=== PATIENT | female | born 1960 | race Caucasian/White ===

== ENCOUNTER → 2017-03-21 | Outpatient (CLI) | payer BC ==
--- NOTE | 2017-03-21 14:55 | KCIC ---
DATE: 03/21/2017 EXAM: MAMMO MALIK SCREENING BILATERAL HISTORY: Routine screening COMPARISON: 04/05/2016, 04/06/2015 This study was interpreted with the benefit of Computerized Aided Detection (CAD). The breast parenchyma shows scattered fibroglandular densities. Breast parenchyma level B. FINDINGS: 2-D and 3-D tomosynthesis imaging was performed in CC and MLO projections. There is an oval-shaped 8 mm nodule again noted in the upper outer quadrant of the right breast posteriorly. No new or enlarging breast densities are seen. Minimal benign type calcification is present. No suspicious microcalcifications have developed. IMPRESSION: 1. Stable right lateral breast nodule. 2. No mammographic evidence of malignancy in either breast. BI-RADS CATEGORY: 2 BENIGN FINDING(S) RECOMMENDED FOLLOW-UP: 12M 12 MONTH FOLLOW-UP PQRS compliance statement: Patient information was entered into a reminder system with a target due date for the next mammogram. Mammography is a sensitive method for finding small breast cancers, but it does not detect them all and is not a substitute for careful clinical examination. A negative mammogram does not negate a clinically suspicious finding and should not result in delay in biopsying a clinically suspicious abnormality. "Our facility is accredited by the [employer]ammography [employer]."
== END | disposition home or self-care (01) ==
LOC: KCIC MAMMO 09:18
PROVIDERS: ATTEND Obstetrics & Gynecology
DX: Z12.31 Encounter for screening mammogram for malignant neoplasm of breast (principal); N63.10 Unspecified lump in the right breast, unspecified quadrant; N63.20 Unspecified lump in the left breast, unspecified quadrant
CPT/HCPCS: 77063; G0202; 77067

== ENCOUNTER → 2018-09-25 | Outpatient (CLI) | payer BC ==
--- NOTE | 2018-09-25 11:56 | KCIC ---
Bilateral digital screening mammograms with 3-D tomosynthesis: Reason for examination: Routine screening. Comparison is made to previous studies dated 03/21/2017 and 04/05/2016. Bilateral mammograms in CC and oblique projections were obtained with 2-D imaging and 3-D tomosynthesis imaging on a Siemens Inspiration unit and reviewed on the workstation. Interpretation was made with the benefit of CAD. The skin and nipples show no abnormalities. No abnormal axillary lymph nodes are seen. The breast parenchyma shows scattered fatty and fibroglandular density. (Breast density: Category B.) There continues to be a small nodular parenchymal density consistent with an intramammary lymph node at the 10:00 B position of the right breast which is stable. There are no new dominant masses, suspicious calcifications or architectural distortion. Impression: No evidence of malignancy. Recommend routine screening. BI-RAD Category 2: Benign. "Our facility is accredited by the [employer] Mammography [employer]." This patient's information has been entered into a reminder system for the patient to be notified with the results of her examination and a target date for the next mammogram. Electronically signed by: Bita James MD (09/25/2018 11:53 AM) [id number]
== END | disposition home or self-care (01) ==
LOC: KCIC MAMMO 09:36
PROVIDERS: ATTEND Obstetrics & Gynecology
DX: Z12.31 Encounter for screening mammogram for malignant neoplasm of breast (principal)
CPT/HCPCS: 77063; 77067

== ENCOUNTER 2019-03-04 06:19 | Day surgery (SDC) | payer BC ==
[~2019-03-04] VITALS: Ht 162.6 cm; Wt 79.8 kg
[~2019-03-04 06:19] MED LIST: CETI10TA22 PO; CLINDAMYCIN 900MG PREMIX 50 ML IV PRN; GABA600T7 PO
[2019-03-04] MEDS ORDERED: MORPHINE SULFATE 2 MG/ML VIAL. IV PRN ×2 (07:00)
[2019-03-04] MEDS ORDERED: fentaNYL PF VIAL 100 MCG/2 ML VIAL IV PRN ×3 (07:00)
[2019-03-04] MEDS ORDERED: IV RINGERS,LACTATED 1000ML 1,000 ML IV SCH ×2 (07:00)
[2019-03-04] MEDS ORDERED: LIDOCAINE 1% PF 2 ML VIAL. ID PRN ×2 (07:00)
[2019-03-04] MEDS ORDERED: PROCHLORPERAZINE 10 MG/2 ML VIAL. IV PRN ×2 (07:00)
[2019-03-04] MEDS ORDERED: HYDROmorphone 2 MG/ML VIAL IV PRN ×2 (07:00)
[2019-03-04] MEDS ORDERED: ONDANSETRON PF 4 MG/2 ML VIAL. IV PRN ×2 (07:00)
[2019-03-04 07:29] LABS: BASO # 0.1 x10^3/uL (0.0-0.2); BASO % 1 % (0-3); EOS # 0.3 x10^3/uL (0.0-0.7); EOS % 7 % (0-3); HEMATOCRIT 39.4 % (36.0-47.0); HEMOGLOBIN 13.3 g/dL (12.0-15.5); LYMPH # 1.2 x10^3/uL (1.0-4.8); LYMPH % 27 % (24-48); MEAN CORPUSCULAR HEMOGLOBIN 30 pg (25-35); MEAN CORPUSCULAR HGB CONC 34 g/dL (31-37); MEAN CORPUSCULAR VOLUME 88 fL (79-100); MONO # 0.4 x10^3/uL (0.0-1.1); MONO % 8 % (0-9); NEUT # 2.6 x10^3/uL (1.8-7.7); NEUT % 57 % (31-73); PLATELET COUNT 236 x10^3/uL (140-400); RED BLOOD COUNT 4.47 x10^6/uL (3.50-5.40); RED CELL DISTRIBUTION WIDTH 12.2 % (11.5-14.5); WHITE BLOOD COUNT 4.6 x10^3/uL (4.0-11.0)
[2019-03-04 07:35] LABS: CREATININE 0.8 mg/dL (0.6-1.0); GFR 73.2; POTASSIUM 3.4 mmol/L (3.5-5.1)
[2019-03-04] MEDS ORDERED: OXYC-325 PO (07:47)
--- NOTE | 2019-03-04 07:49 | DISCH ---
DISCHARGE INSTRUCTIONS Condition on Discharge Condition on Discharge: Stable Activity After Discharge Activity Instructions for Disc: Activity as tolerated (slow advance to activity as tolerated shorter periods of standing and walking as symptomatically necessary keep pressure off the hip until soreness dissipates) Weight Bearing Status after Di: As tolerated Diet after Discharge Diet after Discharge: Regular Wound Incision Care Wound/Incision Care: Ice to area for comfort, Change dressing (remove dressing in 2 days may then shower no soaking until sutures removed) Contacting the DRRoman after DC Call your doctor for: Concerns you may have (report any persistent drainage after 3 days redness calf tenderness along with lower extremity swelling that doesn't resolve with elevation) Follow-Up Follow up with: Dr. Lewis 1 week DUSTIN LEWIS MD Mar 04, 2019 07:48
[2019-03-04] MEDS ORDERED: ROPIVacaine 0.2% PF 10 ML VIAL. ONE ×2 (07:51→09:04)
[2019-03-04] MEDS ORDERED: PROPOFOL 20 ML IV ONE (08:00)
[2019-03-04] MEDS ORDERED: LIDOCAINE 2% PF 5 ML VIAL. ONE (08:00)
[2019-03-04] MEDS ORDERED: fentaNYL PF VIAL 100 MCG/2 ML VIAL ONE (08:01)
[2019-03-04] MEDS ORDERED: DEXAMETHASONE SOD PHOS 20 MG/5 ML VIAL. ONE (08:33)
[2019-03-04] MEDS ORDERED: SEVOFLURANE 31 TO 60 MINUTES. IH ONE (08:33)
[2019-03-04] MEDS ORDERED: ONDANSETRON PF 4 MG/2 ML VIAL. ONE (08:33)
[2019-03-04] MEDS ORDERED: ROPIVacaine 0.5% PF 20 ML VIAL. ONE (09:04)
[2019-03-04] MEDS: fentaNYL PF VIAL 100 MCG/2 ML VIAL IV PRN ×2 (09:54→10:08)
[2019-03-04] MEDS ORDERED: oxyCODONE/APAP 5/325 1 TAB TABLET PO ONE (10:15)
[2019-03-04 10:33] VITALS: BP 116/54
--- NOTE | 2019-03-04 10:37 | PDOC4 ---
Operative Note Operative Note Date of surgery: 03/04/2019 Preoperative diagnosis: Refractory trochanteric bursitis right hip Postoperative diagnosis: Same Operative procedure: Right hip arthroscopy release of iliotibial band and debridement trochanteric bursa Surgeon: Debbie Anesthesia: Gen. Estimated blood loss: 10 mL Complications: None Operative indications: Please see my preoperative clinic note for detailed operative indications and note that she has refractory trochanteric bursitis severely affecting her activities of daily living following multiple injections and stretching of the iliotibial band. She wishes to proceed with more definitive treatment and understands the possibility of continued pain infection nerve or blood vessel damage medical or other anesthetic competitions among others and agrees to proceed with surgical treatment Operative text: Patient was identified procedure verified patient placed in the supine position on the operating table and after adequate amounts of general anesthesia were administered she was placed on the beanbag right side up all bony prominences were well-padded and the right hip was prepped and draped in standard sterile fashion. After timeout was performed patient procedure identified and verified prominence of the greater trochanter was identified with spinal needle and arthroscopic portals established superior and inferior along the midline of the femur iliotibial band was exposed with the arthroscopic bipolar electrocautery and the iliotibial band was released along the midline and widely opened up up until the insertion of the gluteus medius which was visualized to the musculature and down to the vastus lateralis. The trochanteric bursa was debrided with the arthroscopic shaver and bleeding points controlled by the bipolar electrocautery and adequate opening of the iliotibial band verified with taking the hip through full rotational motion and eliminating the pressure on the trochanter and trochanteric bursal area. The site drained of arthroscopic fluid portals closed with nylon suture sterile dressings were applied patient was returned to recovery room in stable condition having tolerated procedure well DUSTIN CUELLAR MD Mar 04, 2019 10:37
== END 2019-03-04 11:32 | disposition home or self-care (01) ==
LOC: SURG 06:19
PROVIDERS: ATTEND Orthopaedic Surgery
DX: M70.61 Trochanteric bursitis, right hip (principal); E66.9 Obesity, unspecified; Z68.30 Body mass index [BMI] 30.0-30.9, adult; Z72.89 Other problems related to lifestyle
CPT/HCPCS: 29862; 29999; 36415; 80048; 85025; 97161; A7015; J1100; J2001; J2405; J2704; J2795; J3010; J3490

== ENCOUNTER → 2020-01-14 | Outpatient (CLI) | payer BC ==
[~2020-01-14] MED LIST changes: -CETI10TA22 PO; +CETI10TA74 PO; -CLINDAMYCIN 900MG PREMIX 50 ML IV PRN; +OXYC-325 PO
--- NOTE | 2020-01-14 10:58 | KCIC ---
Examination: MRI of the left mid foot without contrast HISTORY: History of left foot pain between the fourth and fifth metatarsals. COMPARISON: None available TECHNIQUE: Multiplanar, multisequence MR imaging of the left mid foot without contrast. FINDINGS: The alignment of the tarsal bones grossly appears unremarkable. The distal attachment of the peroneal tendons, anterior extensor compartment tendons, flexor tendons grossly appears intact. The Lisfranc ligament appears intact. There is mild increased T2 signal identified in the inferior aspect of the cuboid, best visualized on series 5 image 9. The visualized anterior, posterior talofibular, talofibular ligaments appear intact. IMPRESSION: 1. Mild increased T2 signal identified in the inferior aspect of the cuboid could be secondary to stress reactive change. 2. Mild degenerative changes tarsal joints. Electronically signed by: Steven Guerrero MD (01/14/2020 10:55 AM) [id number]
== END ==
LOC: KCIC MRI 09:20
PROVIDERS: ATTEND Physician Assistant
DX: M19.072 Primary osteoarthritis, left ankle and foot (principal)
CPT/HCPCS: 73718

== ENCOUNTER → 2020-03-10 | Outpatient (CLI) | payer BC ==
--- NOTE | 2020-03-10 15:43 | KCIC ---
Bilateral digital screening mammograms with 3-D tomosynthesis: Reason for examination: Routine screening. Comparison is made to previous studies dated back to 04/06/2015. Bilateral mammograms in CC and oblique projections were obtained with 2-D imaging and 3-D tomosynthesis imaging on a Siemens Inspiration unit and reviewed on the workstation. Interpretation was made with the benefit of CAD. The skin and nipples show no abnormalities. No abnormal axillary lymph nodes are seen. The breast parenchyma shows scattered fatty and fibroglandular density. (Breast density: Category B.) There continue to be nodules in the 10:00 B and central 12:00 positions of the right breast which are unchanged. There are no new dominant masses, suspicious calcifications or architectural distortion. Impression: No evidence of malignancy. Recommend routine screening. BI-RAD Category 2: Benign. "Our facility is accredited by the [employer] Mammography [employer]." This patient's information has been entered into a reminder system for the patient to be notified with the results of her examination and a target date for the next mammogram. Electronically signed by: Bita James MD (03/10/2020 3:40 PM) [id number]
== END ==
LOC: KCIC MAMMO 13:59
PROVIDERS: ATTEND Obstetrics & Gynecology
DX: Z12.31 Encounter for screening mammogram for malignant neoplasm of breast (principal)
CPT/HCPCS: 77063; 77067

== ENCOUNTER → 2021-03-14 | Outpatient (CLI) | payer BC ==
--- NOTE | 2021-03-14 14:35 | KCIC ---
Bilateral digital screening mammograms with 3-D tomosynthesis: Reason for examination: Routine screening. Comparison is made to previous studies dated back to 04/06/2015. Bilateral mammograms in CC and oblique projections were obtained with 2-D imaging and 3-D tomosynthes is imaging on a Siemens Inspiration unit and reviewed on the workstation. Interpretation was made wit h the benefit of CAD. The skin and nipples show no abnormalities. No abnormal axillary lymph nodes are seen. The breast par enchyma shows scattered fatty and fibroglandular density. (Breast density: Category B.) There continu es to be a small nodule at the 10:00 B position of the right breast which is stable. There are no new dominant masses, suspicious calcifications or architectural distortion. Impression: No evidence of malignancy. Recommend routine screening. BI-RAD Category 2: Benign. "Our facility is accredited by the [employer] Mammography [employer]." This patient's information has been entered into a reminder system for the patient to be notified wit h the results of her examination and a target date for the next mammogram. Electronically signed by: Bita James MD (03/14/2021 2:32 PM) [id number]
== END ==
LOC: KCIC MAMMO 13:16
PROVIDERS: ATTEND Obstetrics & Gynecology
DX: Z12.31 Encounter for screening mammogram for malignant neoplasm of breast (principal)
CPT/HCPCS: 77063; 77067